=== PATIENT | female | born 1970 | race Caucasian/White ===

== ENCOUNTER 2024-07-01 08:03 | Day surgery (SDC) | payer OTHER ==
[~2024-07-01 08:03] MED LIST: Sodium Chloride 0.9% 10 ML Syringe FLUSH PRN; Sodium Chloride 0.9% 2.5 ML Syringe FLUSH PRN; Sodium Chloride 0.9% 20 ML SDV IV PRN
[2024-07-01] MEDS: Lactated Ringers 1,000 ML IV SCH (08:52)
[2024-07-01] MEDS ORDERED: propofoL 50 ML ONE (09:42)
[2024-07-01] MEDS ORDERED: Lidocaine 2% 5 ML SDV ONE (09:44)
[2024-07-01] MEDS ORDERED: Propofol 200 MG/20 ML SDV ONE (10:42)
== END 2024-07-01 11:48 | disposition home or self-care (01) ==
LOC: MW.SDS 08:03
PROVIDERS: ATTEND Surgery
DX: Z12.11 Encounter for screening for malignant neoplasm of colon (principal); D12.3 Benign neoplasm of transverse colon; K57.30 Diverticulosis of large intestine without perforation or abscess without bleeding; I10 Essential (primary) hypertension; E78.5 Hyperlipidemia, unspecified; E11.9 Type 2 diabetes mellitus without complications; E66.01 Morbid (severe) obesity due to excess calories; Z88.5 Allergy status to narcotic agent; Z87.891 Personal history of nicotine dependence; Z68.42 Body mass index [BMI] 45.0-49.9, adult; Z88.2 Allergy status to sulfonamides; Z79.899 Other long term (current) drug therapy; Z79.84 Long term (current) use of oral hypoglycemic drugs
CPT/HCPCS: 45380; J2704; J7120; J3490